=== PATIENT | male | born 1970 | race Caucasian/White ===

== ENCOUNTER 2017-12-08 10:54 | Emergency (ER) | payer MEDICAID, OTHER ==
[~2017-12-08] VITALS: Ht 177.8 cm; Wt 82.0 kg
[~2017-12-08 10:54] MED LIST: L10
[2017-12-08] MEDS ORDERED: FAMOTIDINE 20MG/2ML VIAL IV STA (11:03)
[2017-12-08] MEDS ORDERED: ONDANSETRON HCL 4MG/2ML VIAL IV STA (11:03)
[2017-12-08] MEDS ORDERED: SODIUM CHLORIDE 0.9% 1,000 ML IV ONE ×2 (11:03→13:18)
[2017-12-08] MEDS ORDERED: PANTOPRAZOLE SODIUM 40 MG/VIAL IV STA (11:03)
[2017-12-08] MEDS ORDERED: MIDAZOLAM HCL 2 MG/2 ML VIAL IV ONE (11:15)
[2017-12-08 12:55] LABS: CHLORIDE 106 mEq/L (98-107)
[2017-12-08 12:56] LABS: HEMATOCRIT. 39.3 % (42.0-52.0); HEMOGLOBIN. 13.5 g/dL (14.0-18.0); MEAN CORPUSCULAR HEMOGLOBIN 34.7 pg (28.0-32.0); MEAN CORPUSCULAR VOLUME 100.8 fL (80.0-94.0); RED CELL DISTRIBUTION WIDTH 15.7 % (11.6-14.6)
[2017-12-08 12:58] LABS: PARTIAL THROMBOPLASTIN TIME 24.9 sec (23.4-31.0); PROTHROMBIN TIME 10.5 sec (9.4-11.6)
[2017-12-08 12:59] LABS: AMMONIA 34 uMol/L (<32); ETHANOL BLOOD < 10 mg/dL
[2017-12-08] MEDS ORDERED: LORAZEPAM 1MG TABLET PO ONE (13:30)
[2017-12-08 13:39] LABS: PLATELET 36 x1000/uL (130-400)
[2017-12-08 13:44] LABS: PLATELET ESTIMATE MARKEDLY DECREASED
[2017-12-08] MEDS ORDERED: ONDANSETRON HCL 4MG/2ML VIAL IV ONE (14:30)
[2017-12-08 14:57] LABS: CLARITY URINE CLEAR (CLEAR); COLOR URINE DARK YELLOW (YELLOW); KETONES URINE 3+ (NEGATIVE); LEUKOCYTE ESTERASE URINE NEGATIVE (NEGATIVE); NITRITE URINE NEGATIVE (NEGATIVE); OCCULT BLOOD URINE TRACE (NEGATIVE); PH URINE 5.5 (4.5-8.0); PROTEIN URINE 2+ (NEGATIVE); SPECIFIC GRAVITY URINE 1.033 (1.005-1.030)
[2017-12-08 15:21] VITALS: BP 140/101
[2017-12-08 15:38] LABS: *AMPHETAMINES SCREEN URINE NEGATIVE (NEGATIVE); *BARBITURATES SCREEN URINE NEGATIVE (NEGATIVE); *BENZODIAZEPINES SCREEN URINE PRESUMTIVE POSITIVE (NEGATIVE); *COCAINE SCREEN URINE NEGATIVE (NEGATIVE)
[2017-12-08 15:39] LABS: CANNABINOID URINE SCREEN NEGATIVE (NEGATIVE); METHADONE URINE SCREEN NEGATIVE (NEGATIVE); OPIATES URINE SCREEN NEGATIVE (NEGATIVE); PHENCYCLIDINE URINE SCREEN NEGATIVE (NEGATIVE)
== END 2017-12-08 15:54 | disposition home or self-care (01) ==
LOC: ER 10:54 → CANBEDREQ 15:28 → ER 15:54
DX: F10.239 Alcohol dependence with withdrawal, unspecified (principal); E86.0 Dehydration; D69.6 Thrombocytopenia, unspecified; D64.9 Anemia, unspecified; R79.89 Other specified abnormal findings of blood chemistry; Y90.0 Blood alcohol level of less than 20 mg/100 ml
CPT/HCPCS: 36415; 71045; 80053; 80305; 81003; 82140; 83690; 83735; 85025; 85610; 85730; 93005; 96361; 96374; 96375; 96376; 99291; C9113; G0482; J2250; J2405; J3490; J7030; Z7610

== ENCOUNTER 2017-12-08 19:13 | Emergency (ER) | payer SELFPAY ==
[~2017-12-08] VITALS: Ht 162.6 cm; Wt 73.0 kg
[2017-12-08] MEDS ORDERED: CHLORDIAZEPOXIDE 25MG CAPSULE PO ONE (20:30)
[2017-12-08] MEDS ORDERED: IBUPROFEN 600MG TABLET PO ONE (20:30)
[2017-12-08 22:11] VITALS: BP 151/93
== END 2017-12-08 22:13 | disposition home or self-care (01) ==
LOC: ER 19:13
DX: F10.239 Alcohol dependence with withdrawal, unspecified (principal); Y90.9 Presence of alcohol in blood, level not specified
CPT/HCPCS: 99283

== ENCOUNTER 2018-01-18 08:44 | Emergency (ER) | payer SELFPAY ==
[~2018-01-18] VITALS: Ht 170.2 cm; Wt 80.0 kg
[2018-01-18 11:13] LABS: EOSINOPHILS % 1.1 % (0.0-5.0); HEMATOCRIT. 41.4 % (42.0-52.0); HEMOGLOBIN. 14.3 g/dL (14.0-18.0); LYMPHOCYTES % 31.4 % (20.0-50.0); MEAN CORPUSCULAR HEMOGLOBIN 35.7 pg (28.0-32.0); MEAN CORPUSCULAR VOLUME 103.3 fL (80.0-94.0); MEAN PLATELET VOLUME 7.2 fl (7.4-10.4); MONOCYTES % 11.9 % (2.0-8.0); NEUTROPHILS % 52.6 % (40.0-76.0); PLATELET 80 x1000/uL (130-400); RED BLOOD CELL COUNT 4.01 mill/uL (4.7-6.1); RED CELL DISTRIBUTION WIDTH 16.5 % (11.6-14.6)
[2018-01-18 11:19] LABS: CHLORIDE 103 mEq/L (98-107)
[2018-01-18 11:24] LABS: ETHANOL BLOOD 273 mg/dL
[2018-01-18 13:30] VITALS: BP 119/87
== END 2018-01-18 15:44 | disposition home or self-care (01) ==
LOC: ER 09:18
DX: T51.0X1A Toxic effect of ethanol, accidental (unintentional), initial encounter (principal); R20.2 Paresthesia of skin; D47.3 Essential (hemorrhagic) thrombocythemia; D72.819 Decreased white blood cell count, unspecified; R74.0 Nonspecific elevation of levels of transaminase and lactic acid dehydrogenase [LDH]; F17.200 Nicotine dependence, unspecified, uncomplicated; Y90.8 Blood alcohol level of 240 mg/100 ml or more; Y92.018 Other place in single-family (private) house as the place of occurrence of the external cause
CPT/HCPCS: 36415; 70551; 71045; 80053; 85025; 99285; G0482

== ENCOUNTER 2018-01-23 14:04 | Emergency (ER) | payer SELFPAY ==
[~2018-01-23] VITALS: Ht 177.8 cm; Wt 82.0 kg
[2018-01-23] MEDS ORDERED: LORAZEPAM 2MG/ML CPJ IV STA (16:38)
[2018-01-23] MEDS ORDERED: SODIUM CHLORIDE 0.9% 1,000 ML IV ONE (16:38)
[2018-01-23 17:29] LABS: CHLORIDE 103 mEq/L (98-107)
[2018-01-23 17:30] LABS: BASOPHILS % 1.3 % (0.0-2.0); EOSINOPHILS % 1.4 % (0.0-5.0); HEMATOCRIT. 38.6 % (42.0-52.0); HEMOGLOBIN. 13.1 g/dL (14.0-18.0); LYMPHOCYTES % 30.2 % (20.0-50.0); MEAN CORPUSCULAR HEMOGLOBIN 35.8 pg (28.0-32.0); MEAN CORPUSCULAR VOLUME 105.6 fL (80.0-94.0); MEAN PLATELET VOLUME 7.9 fl (7.4-10.4); MONOCYTES % 14.1 % (2.0-8.0); PLATELET 142 x1000/uL (130-400); RED BLOOD CELL COUNT 3.66 mill/uL (4.7-6.1); RED CELL DISTRIBUTION WIDTH 16.2 % (11.6-14.6)
[2018-01-23 17:36] LABS: ETHANOL BLOOD < 10 mg/dL
[2018-01-23 17:37] LABS: PHOSPHORUS 3.5 mg/dL (2.5-4.9)
[2018-01-23 17:40] LABS: CREATINE KINASE 157 IU/L (39-308)
[2018-01-23] MEDS ORDERED: GABAPENTIN 300MG CAPSULE PO ONE (19:00)
[2018-01-23 19:08] VITALS: BP 123/71
[2018-01-23 20:03] LABS: CLARITY URINE CLEAR (CLEAR); COLOR URINE YELLOW (YELLOW); KETONES URINE NEGATIVE (NEGATIVE); LEUKOCYTE ESTERASE URINE NEGATIVE (NEGATIVE); NITRITE URINE NEGATIVE (NEGATIVE); OCCULT BLOOD URINE NEGATIVE (NEGATIVE); PH URINE 5.5 (4.5-8.0); PROTEIN URINE NEGATIVE (NEGATIVE); SPECIFIC GRAVITY URINE 1.017 (1.005-1.030); UROBILINOGEN URINE 0.2 E.U./dL (0.2-1.0)
[2018-01-23 20:26] LABS: *AMPHETAMINES SCREEN URINE NEGATIVE (NEGATIVE); *BARBITURATES SCREEN URINE NEGATIVE (NEGATIVE); *BENZODIAZEPINES SCREEN URINE NEGATIVE (NEGATIVE); *COCAINE SCREEN URINE NEGATIVE (NEGATIVE); METHADONE URINE SCREEN NEGATIVE (NEGATIVE)
[2018-01-23 20:27] LABS: CANNABINOID URINE SCREEN NEGATIVE (NEGATIVE); OPIATES URINE SCREEN NEGATIVE (NEGATIVE); PHENCYCLIDINE URINE SCREEN NEGATIVE (NEGATIVE)
== END 2018-01-23 19:26 | disposition home or self-care (01) ==
LOC: ER 16:25
DX: R20.2 Paresthesia of skin (principal); G62.9 Polyneuropathy, unspecified; F10.20 Alcohol dependence, uncomplicated; Y90.0 Blood alcohol level of less than 20 mg/100 ml
CPT/HCPCS: 36415; 80053; 80305; 80307; 80329; 81003; 82550; 83735; 83880; 84100; 84443; 84484; 85025; 96361; 96374; 99284; G0482; J2060; J7030; Z7610

== ENCOUNTER 2018-01-25 08:37 | Emergency (ER) | payer SELFPAY ==
[~2018-01-25] VITALS: Ht 165.1 cm; Wt 83.2 kg
[2018-01-25 13:56] VITALS: BP 126/83
== END 2018-01-25 13:57 | disposition home or self-care (01) ==
LOC: ER 09:03
DX: G62.1 Alcoholic polyneuropathy (principal); F10.20 Alcohol dependence, uncomplicated
CPT/HCPCS: 93005; 99284

== ENCOUNTER 2018-11-29 09:47 | Emergency (ER) | payer MEDICAID ==
[~2018-11-29] VITALS: Ht 167.6 cm; Wt 89.0 kg
[2018-11-29] MEDS ORDERED: IBUPROFEN 800MG TABLET PO ONE (11:00)
[2018-11-29 12:34] VITALS: BP 123/72
== END 2018-11-29 12:39 | disposition home or self-care (01) ==
LOC: ER 09:47
DX: M79.18 Myalgia, other site (principal); M54.2 Cervicalgia; R20.0 Anesthesia of skin; F10.229 Alcohol dependence with intoxication, unspecified; F41.9 Anxiety disorder, unspecified; F17.200 Nicotine dependence, unspecified, uncomplicated; Y90.9 Presence of alcohol in blood, level not specified
CPT/HCPCS: 70450; 72125; 99284; Z7610

== ENCOUNTER 2018-12-08 09:44 | Emergency (ER) | payer MEDICAID | END 2018-12-08 11:26 | disposition left against medical advice (07) | LOC: ER 09:44 | DX: Z53.21 Procedure and treatment not carried out due to patient leaving prior to being seen by health care provider (principal) ==

== ENCOUNTER 2019-01-03 09:10 | Emergency (ER) | payer MEDICAID ==
[~2019-01-03] VITALS: Ht 177.8 cm; Wt 82.0 kg
[2019-01-03 09:45] VITALS: BP 128/89
[2019-01-03 10:50] LABS: CHLORIDE 105 mEq/L (98-107)
[2019-01-03 10:51] LABS: INR 0.9; PROTHROMBIN TIME 9.4 sec (9.6-11.0)
[2019-01-03 11:16] LABS: BASOPHILS % 1.9 % (0.0-2.0); HEMATOCRIT. 38.5 % (42.0-52.0); HEMOGLOBIN. 13.5 g/dL (14.0-18.0); LYMPHOCYTES % 29.9 % (20.0-50.0); MEAN CORPUSCULAR HEMOGLOBIN 37.5 pg (28.0-32.0); MEAN CORPUSCULAR VOLUME 106.9 fL (80.0-94.0); MEAN PLATELET VOLUME 7.7 fl (7.4-10.4); MONOCYTES % 10.3 % (2.0-8.0); NEUTROPHILS % 56.9 % (40.0-76.0); PLATELET 71 x1000/uL (130-400); RED BLOOD CELL COUNT 3.61 mill/uL (4.7-6.1); RED CELL DISTRIBUTION WIDTH 16.2 % (11.6-14.6)
[2019-01-03 11:31] LABS: ETHANOL BLOOD 431 mg/dL
== END 2019-01-03 12:16 | disposition left against medical advice (07) ==
LOC: ER 09:10
DX: F10.229 Alcohol dependence with intoxication, unspecified (principal); Y90.8 Blood alcohol level of 240 mg/100 ml or more; R94.8 Abnormal results of function studies of other organs and systems; F17.210 Nicotine dependence, cigarettes, uncomplicated
CPT/HCPCS: 36415; 80320; 99283; G0480

== ENCOUNTER 2019-02-09 08:18 | Emergency (ER) | payer MEDICAID ==
[~2019-02-09] VITALS: Ht 172.7 cm; Wt 82.0 kg
[2019-02-09 08:30] VITALS: BP 115/73
[2019-02-09] MEDS ORDERED: IBUPROFEN 600MG TABLET PO ONE (09:00)
== END 2019-02-09 09:29 | disposition home or self-care (01) ==
LOC: ER 08:18
DX: G89.29 Other chronic pain (principal); M54.2 Cervicalgia
CPT/HCPCS: 99282

== ENCOUNTER 2019-03-20 10:39 | Emergency (ER) | payer MEDICAID ==
[~2019-03-20] VITALS: Ht 172.7 cm; Wt 75.0 kg
[2019-03-20] MEDS ORDERED: SODIUM CHLORIDE 0.9% 1,000 ML IV ONE (10:59)
[2019-03-20 11:43] LABS: BASOPHILS % 2.3 % (0.0-2.0); HEMATOCRIT. 38.6 % (42.0-52.0); HEMOGLOBIN. 13.5 g/dL (14.0-18.0); LYMPHOCYTES % 19.8 % (20.0-50.0); MEAN CORPUSCULAR HEMOGLOBIN 38.5 pg (28.0-32.0); MEAN CORPUSCULAR VOLUME 109.9 fL (80.0-94.0); MEAN PLATELET VOLUME 7.5 fl (7.4-10.4); MONOCYTES % 6.5 % (2.0-8.0); NEUTROPHILS % 70.4 % (40.0-76.0); PLATELET 82 x1000/uL (130-400); RED BLOOD CELL COUNT 3.51 mill/uL (4.7-6.1); RED CELL DISTRIBUTION WIDTH 13.3 % (11.6-14.6)
[2019-03-20 11:56] LABS: CHLORIDE 106 mEq/L (98-107)
[2019-03-20 12:10] LABS: ETHANOL BLOOD 419 mg/dL
[2019-03-20 12:18] LABS: *AMPHETAMINES SCREEN URINE NEGATIVE (NEGATIVE); *BARBITURATES SCREEN URINE NEGATIVE (NEGATIVE); *BENZODIAZEPINES SCREEN URINE NEGATIVE (NEGATIVE); *COCAINE SCREEN URINE NEGATIVE (NEGATIVE); METHADONE URINE SCREEN NEGATIVE (NEGATIVE); OPIATES URINE SCREEN NEGATIVE (NEGATIVE)
[2019-03-20 12:19] LABS: CANNABINOID URINE SCREEN NEGATIVE (NEGATIVE); PHENCYCLIDINE URINE SCREEN NEGATIVE (NEGATIVE)
[2019-03-20 15:19] VITALS: BP 124/72
== END 2019-03-20 15:22 | disposition home or self-care (01) ==
LOC: ER 10:43
DX: R55 Syncope and collapse (principal); F10.129 Alcohol abuse with intoxication, unspecified; Y90.9 Presence of alcohol in blood, level not specified
CPT/HCPCS: 36415; 80053; 80305; 80320; 85025; 93005; 96360; 99284; J7030; G0480

== ENCOUNTER 2020-01-19 18:48 | Emergency (ER) | payer MEDICAID ==
[~2020-01-19] VITALS: Ht 167.6 cm; Wt 72.0 kg
[~2020-01-19 18:48] MED LIST changes: +CHLO10CA71; -L10
[2020-01-19 19:50] VITALS: BP 117/85
== END 2020-01-19 20:13 | disposition home or self-care (01) ==
LOC: ER 18:48
DX: F10.129 Alcohol abuse with intoxication, unspecified (principal); Y90.9 Presence of alcohol in blood, level not specified; I10 Essential (primary) hypertension
CPT/HCPCS: 93005; 99283

== ENCOUNTER 2020-01-22 15:12 | Emergency (ER) | payer MEDICAID ==
[~2020-01-22] VITALS: Ht 167.6 cm; Wt 73.0 kg
[2020-01-22] MEDS ORDERED: LORAZEPAM 2MG/ML CPJ IV ONE (16:00)
[2020-01-22] MEDS ORDERED: CYANOCOBALAMIN 1000MCG/ML VIAL IM ONE (16:00)
[2020-01-22] MEDS ORDERED: SODIUM CHLORIDE 0.9% 1,000 ML IV ONE (16:00)
[2020-01-22 17:24] LABS: BASOPHILS % 1.4 % (0.0-2.0); EOSINOPHILS % 0.1 % (0.0-5.0); HEMOGLOBIN. 12.9 g/dL (14.0-18.0); LYMPHOCYTES % 7.6 % (20.0-50.0); MEAN CORPUSCULAR HEMOGLOBIN 35.2 pg (28.0-32.0); MEAN CORPUSCULAR VOLUME 103.6 fL (80.0-94.0); MEAN PLATELET VOLUME 7.9 fl (7.4-10.4); MONOCYTES % 8.4 % (2.0-8.0); NEUTROPHILS % 82.5 % (40.0-76.0); PLATELET 59 x1000/uL (130-400); RED BLOOD CELL COUNT 3.67 mill/uL (4.7-6.1); RED CELL DISTRIBUTION WIDTH 18.3 % (11.6-14.6)
[2020-01-22 17:30] LABS: CHLORIDE 102 mEq/L (98-107)
[2020-01-22 17:33] LABS: ETHANOL BLOOD < 10 mg/dL
[2020-01-22 17:51] LABS: CLARITY URINE CLEAR (CLEAR); COLOR URINE YELLOW (YELLOW); KETONES URINE NEGATIVE (NEGATIVE); LEUKOCYTE ESTERASE URINE NEGATIVE (NEGATIVE); NITRITE URINE NEGATIVE (NEGATIVE); OCCULT BLOOD URINE NEGATIVE (NEGATIVE); PH URINE 8.5 (4.5-8.0); PROTEIN URINE 1+ (NEGATIVE); SPECIFIC GRAVITY URINE 1.007 (1.005-1.030); UROBILINOGEN URINE 0.2 E.U./dL (0.2-1.0)
[2020-01-22 18:03] LABS: CANNABINOID URINE SCREEN NEGATIVE (NEGATIVE)
[2020-01-22 18:05] LABS: *AMPHETAMINES SCREEN URINE NEGATIVE (NEGATIVE); *BARBITURATES SCREEN URINE NEGATIVE (NEGATIVE); *BENZODIAZEPINES SCREEN URINE NEGATIVE (NEGATIVE); *COCAINE SCREEN URINE NEGATIVE (NEGATIVE); METHADONE URINE SCREEN NEGATIVE (NEGATIVE); OPIATES URINE SCREEN NEGATIVE (NEGATIVE); PHENCYCLIDINE URINE SCREEN NEGATIVE (NEGATIVE)
[2020-01-22 22:45] VITALS: BP 116/68
== END 2020-01-22 22:49 | disposition home or self-care (01) ==
LOC: ER 15:12
DX: F10.239 Alcohol dependence with withdrawal, unspecified (principal); Y90.0 Blood alcohol level of less than 20 mg/100 ml; D72.819 Decreased white blood cell count, unspecified; D64.9 Anemia, unspecified; D69.6 Thrombocytopenia, unspecified; R74.0 Nonspecific elevation of levels of transaminase and lactic acid dehydrogenase [LDH]; E86.0 Dehydration; E53.8 Deficiency of other specified B group vitamins; I10 Essential (primary) hypertension; Z87.440 Personal history of urinary (tract) infections; Z87.09 Personal history of other diseases of the respiratory system; E16.2 Hypoglycemia, unspecified
CPT/HCPCS: 36415; 71045; 80053; 80305; 80320; 81003; 83880; 84484; 85025; 85651; 93005; 96361; 96372; 96374; 99285; J2060; J3420; J7030; G0480

== ENCOUNTER 2020-10-02 09:55 | Emergency (ER) | payer MEDICAID ==
[~2020-10-02] VITALS: Ht 177.8 cm; Wt 87.0 kg
[2020-10-02] MEDS ORDERED: ONDANSETRON HCL 4MG/2ML INJ IV ONE (10:30)
[2020-10-02] MEDS ORDERED: SODIUM CHLORIDE 0.9% 1,000 ML IV ONE (10:30)
[2020-10-02] MEDS ORDERED: LORAZEPAM 2MG/ML CPJ IV ONE (10:30)
[2020-10-02 10:58] LABS: BASOPHILS % 1.1 % (0.0-2.0); EOSINOPHILS % 0.7 % (0.0-5.0); HEMATOCRIT. 38.6 % (42.0-52.0); HEMOGLOBIN. 13.5 g/dL (14.0-18.0); LYMPHOCYTES % 23.5 % (20.0-50.0); MEAN CORPUSCULAR HEMOGLOBIN 36.1 pg (28.0-32.0); MEAN PLATELET VOLUME 7.6 fl (7.4-10.4); NEUTROPHILS % 65.7 % (40.0-76.0); RED BLOOD CELL COUNT 3.75 mill/uL (4.7-6.1); RED CELL DISTRIBUTION WIDTH 16.7 % (11.6-14.6)
[2020-10-02 10:59] LABS: CHLORIDE 102 mEq/L (98-107)
[2020-10-02 11:03] LABS: ETHANOL BLOOD 201 mg/dL; PROTHROMBIN TIME 10.5 sec (9.6-11.0)
[2020-10-02 11:47] LABS: PLATELET ESTIMATE MARKEDLY DECREASED
[2020-10-02 11:48] LABS: PLATELET 31 x1000/uL (130-400)
[2020-10-02 13:20] VITALS: BP 128/82
== END 2020-10-02 13:22 | disposition home or self-care (01) ==
LOC: ER 09:55
DX: F10.129 Alcohol abuse with intoxication, unspecified (principal); R51.9 Headache, unspecified; R94.5 Abnormal results of liver function studies; R11.2 Nausea with vomiting, unspecified; I49.9 Cardiac arrhythmia, unspecified; Y90.7 Blood alcohol level of 200-239 mg/100 ml
CPT/HCPCS: 36415; 70450; 71045; 80053; 80320; 83690; 83880; 84484; 85025; 85610; 93005; 96361; 96374; 96375; 99285; J2060; J2405; J7030; Z7610; G0480

== ENCOUNTER 2021-01-04 03:34 | Emergency (ER) | payer MEDICAID ==
[~2021-01-04] VITALS: Ht 167.6 cm; Wt 86.0 kg
[2021-01-04] MEDS ORDERED: ASPIRIN 81MG TABLET PO ONE (04:45)
[2021-01-04 05:14] LABS: BASOPHILS % 2.6 % (0.0-2.0); EOSINOPHILS % 1.3 % (0.0-5.0); HEMATOCRIT. 36.8 % (42.0-52.0); HEMOGLOBIN. 12.6 g/dL (14.0-18.0); LYMPHOCYTES % 32.2 % (20.0-50.0); MEAN CORPUSCULAR HEMOGLOBIN 35.8 pg (28.0-32.0); MEAN CORPUSCULAR VOLUME 104.8 fL (80.0-94.0); MEAN PLATELET VOLUME 7.9 fl (7.4-10.4); MONOCYTES % 12.2 % (2.0-8.0); NEUTROPHILS % 51.7 % (40.0-76.0); PLATELET 53 x1000/uL (130-400); RED BLOOD CELL COUNT 3.52 mill/uL (4.7-6.1); RED CELL DISTRIBUTION WIDTH 15.6 % (11.6-14.6)
[2021-01-04 05:24] LABS: CHLORIDE 106 mEq/L (98-107)
[2021-01-04] MEDS ORDERED: KETOROLAC 30MG/ML VIAL IV STA (05:58)
[2021-01-04] MEDS ORDERED: METOCLOPRAMIDE HCL 10MG/2ML VIAL IV ONE (06:00)
[2021-01-04] MEDS ORDERED: SODIUM CHLORIDE 0.9% 1,000 ML IV ONE (06:00)
[2021-01-04 09:27] VITALS: BP 122/70
== END 2021-01-04 08:30 | disposition left against medical advice (07) ==
LOC: ER 03:34
DX: R07.89 Other chest pain (principal); R51.9 Headache, unspecified
CPT/HCPCS: 36415; 71045; 80053; 84484; 85025; 93005; 96361; 96374; 96375; 99285; J1885; J2765; J7030; Z7610

== ENCOUNTER 2021-03-03 08:00 | Emergency (ER) | payer MEDICAID ==
[~2021-03-03] VITALS: Ht 177.8 cm; Wt 88.0 kg
[2021-03-03 09:00] VITALS: BP 130/77
[2021-03-03 09:04] LABS: EOSINOPHILS % 9.1 % (0.0-5.0); HEMATOCRIT. 41.9 % (42.0-52.0); HEMOGLOBIN. 14.8 g/dL (14.0-18.0); LYMPHOCYTES % 27.5 % (20.0-50.0); MEAN CORPUSCULAR HEMOGLOBIN 35.9 pg (28.0-32.0); MEAN CORPUSCULAR VOLUME 101.3 fL (80.0-94.0); MEAN PLATELET VOLUME 7.5 fl (7.4-10.4); MONOCYTES % 5.8 % (2.0-8.0); NEUTROPHILS % 56.6 % (40.0-76.0); PLATELET 81 x1000/uL (130-400); RED BLOOD CELL COUNT 4.13 mill/uL (4.7-6.1); RED CELL DISTRIBUTION WIDTH 14.7 % (11.6-14.6)
[2021-03-03 09:09] LABS: CHLORIDE 106 mEq/L (98-107)
[2021-03-03] MEDS ORDERED: ONDANSETRON HCL 4MG/2ML INJ IV STA (09:16)
[2021-03-03] MEDS ORDERED: MAGNESIUM/ALUMINUM HYDROXIDE/SIMETHICONE 30ML UDC PO STA (09:16)
[2021-03-03] MEDS ORDERED: CALCIUM 1250MG TABLET (500MG ELEMENTAL CALCIUM) PO NR (10:00)
== END 2021-03-03 12:34 | disposition left against medical advice (07) ==
LOC: ER 08:00
DX: R10.13 Epigastric pain (principal); R11.0 Nausea; F10.229 Alcohol dependence with intoxication, unspecified; Y90.0 Blood alcohol level of less than 20 mg/100 ml
CPT/HCPCS: 36415; 80053; 83690; 84484; 85025; 93005; 96374; 99284; J2405; Z7610

== ENCOUNTER 2021-07-22 18:33 | Emergency (ER) | payer MEDICAID ==
[~2021-07-22] VITALS: Ht 165.1 cm; Wt 82.0 kg
[2021-07-22] MEDS ORDERED: METOCLOPRAMIDE HCL 10MG/2ML VIAL IV ONE (18:45)
[2021-07-22] MEDS ORDERED: SODIUM CHLORIDE 0.9% 1,000 ML IV ONE (18:45)
[2021-07-22] MEDS ORDERED: FOLIC ACID 1 MG, THIAMINE HCL 100 MG, MVI, ADULT NO.1 10 ML in DEXTROSE 5% WATER 1,000 ML IV ONE ×4 (18:45)
[2021-07-22] MEDS ORDERED: DIPHENHYDRAMINE 50MG/ML VIAL IV ONE (18:45)
[2021-07-22 19:35] LABS: BASOPHILS % 1.7 % (0.0-2.0); EOSINOPHILS % 2.1 % (0.0-5.0); HEMATOCRIT. 39.2 % (42.0-52.0); HEMOGLOBIN. 13.3 g/dL (14.0-18.0); LYMPHOCYTES % 53.3 % (20.0-50.0); MEAN CORPUSCULAR HEMOGLOBIN 34.9 pg (28.0-32.0); MEAN CORPUSCULAR VOLUME 102.9 fL (80.0-94.0); MEAN PLATELET VOLUME 7.7 fl (7.4-10.4); MONOCYTES % 12.2 % (2.0-8.0); NEUTROPHILS % 30.7 % (40.0-76.0); PLATELET 66 x1000/uL (130-400); RED BLOOD CELL COUNT 3.81 mill/uL (4.7-6.1); RED CELL DISTRIBUTION WIDTH 16.2 % (11.6-14.6)
[2021-07-22 19:43] LABS: CHLORIDE 107 mEq/L (98-107)
[2021-07-22 20:13] LABS: ETHANOL BLOOD 410 mg/dL
[2021-07-22] MEDS ORDERED: TOPUD PO (22:45)
[2021-07-22] MEDS ORDERED: IBUP-2028 MT (22:46)
[2021-07-22 23:05] VITALS: BP 120/78
== END 2021-07-22 23:16 | disposition home or self-care (01) ==
LOC: ER 18:33
DX: F10.129 Alcohol abuse with intoxication, unspecified (principal); M19.90 Unspecified osteoarthritis, unspecified site; Y90.8 Blood alcohol level of 240 mg/100 ml or more
CPT/HCPCS: 36415; 70450; 70486; 72125; 80053; 80307; 80320; 80329; 85025; 99284; J7030; J3411; J3490; J7070; G0480

== ENCOUNTER 2021-07-29 13:30 | Emergency (ER) | payer MEDICAID ==
[~2021-07-29] VITALS: Ht 170.2 cm; Wt 82.0 kg
[~2021-07-29 13:30] MED LIST changes: +IBUP-2028 MT; +TOPUD PO
[2021-07-29] MEDS ORDERED: ACETAMINOPHEN 325MG TABLET PO ONE (14:45)
[2021-07-29] MEDS ORDERED: ACET-2708 MT (15:53)
[2021-07-29 15:55] VITALS: BP 151/73
== END 2021-07-29 16:15 | disposition home or self-care (01) ==
LOC: ER 13:30
DX: S50.11XA Contusion of right forearm, initial encounter (principal); M19.90 Unspecified osteoarthritis, unspecified site; F10.10 Alcohol abuse, uncomplicated; Y90.9 Presence of alcohol in blood, level not specified; X58.XXXA Exposure to other specified factors, initial encounter; Y93.89 Activity, other specified; Y92.018 Other place in single-family (private) house as the place of occurrence of the external cause
CPT/HCPCS: 73090; 73110; 73130; 99284

== ENCOUNTER 2021-08-05 18:26 | Emergency (ER) | payer MEDICAID ==
[~2021-08-05] VITALS: Ht 170.2 cm; Wt 86.0 kg
[~2021-08-05 18:26] MED LIST changes: +ACET-2708 MT
[2021-08-05 18:41] VITALS: BP 125/86
[2021-08-05] MEDS ORDERED: MAGNESIUM/ALUMINUM HYDROXIDE/SIMETHICONE 30ML UDC PO STA (19:29)
[2021-08-05] MEDS ORDERED: FAMOTIDINE 20MG TABLET PO ONE (19:30)
[2021-08-05] MEDS ORDERED: ASPIRIN 325MG EC TABLET PO ONE (19:30)
[2021-08-05] MEDS ORDERED: NITROGLYCERIN 0.4MG TABLET SL SL ONE (19:30)
[2021-08-05 19:53] LABS: BASOPHILS % 1.2 % (0.0-2.0); EOSINOPHILS % 3.5 % (0.0-5.0); HEMATOCRIT. 40.4 % (42.0-52.0); HEMOGLOBIN. 13.9 g/dL (14.0-18.0); LYMPHOCYTES % 31.1 % (20.0-50.0); MEAN CORPUSCULAR HEMOGLOBIN 35.6 pg (28.0-32.0); MEAN CORPUSCULAR VOLUME 103.9 fL (80.0-94.0); MEAN PLATELET VOLUME 8.1 fl (7.4-10.4); MONOCYTES % 10.2 % (2.0-8.0); PLATELET 64 x1000/uL (130-400); RED BLOOD CELL COUNT 3.89 mill/uL (4.7-6.1); RED CELL DISTRIBUTION WIDTH 16.8 % (11.6-14.6)
[2021-08-05 19:59] LABS: CHLORIDE 105 mEq/L (98-107)
[2021-08-05 20:03] LABS: ETHANOL BLOOD 270 mg/dL
== END 2021-08-05 22:48 | disposition home or self-care (01) ==
LOC: ER 18:26
DX: F10.229 Alcohol dependence with intoxication, unspecified (principal); R10.13 Epigastric pain; M19.90 Unspecified osteoarthritis, unspecified site; Y90.8 Blood alcohol level of 240 mg/100 ml or more
CPT/HCPCS: 36415; 71045; 80053; 80320; 83880; 84484; 85025; 93005; 99285; G0480

== ENCOUNTER 2022-03-29 12:55 | Inpatient (IN) | payer MEDICAID ==
[~2022-03-29] VITALS: Ht 170.2 cm; Wt 66.2 kg
[~2022-03-29 12:55] MED LIST changes: -CHLO10CA71; +L10
[2022-03-29] MEDS ORDERED: SODIUM CHLORIDE 0.9% 1,000 ML IV ONE (14:00)
[2022-03-29 14:33] LABS: BASOPHILS % 2.7 % (0.0-2.0); HEMOGLOBIN. 11.6 g/dL (14.0-18.0); LYMPHOCYTES % 29.8 % (20.0-50.0); MEAN CORPUSCULAR HEMOGLOBIN 38.5 pg (28.0-32.0); MEAN CORPUSCULAR VOLUME 112.7 fL (80.0-94.0); MEAN PLATELET VOLUME 8.8 fl (7.4-10.4); MONOCYTES % 9.1 % (2.0-8.0); NEUTROPHILS % 54.4 % (40.0-76.0); RED BLOOD CELL COUNT 3.02 mill/uL (4.7-6.1); RED CELL DISTRIBUTION WIDTH 14.7 % (11.6-14.6)
[2022-03-29 14:39] LABS: CHLORIDE 103 mEq/L (98-107)
[2022-03-29 14:41] LABS: PLATELET 37 x1000/uL (130-400)
[2022-03-29 14:55] LABS: PLATELET ESTIMATE MARKEDLY DECREASED
[2022-03-29 16:24] LABS: INR 0.9
[2022-03-30 02:52] VITALS: BP 129/89
[2022-03-30 04:00] VITALS: BP 137/90
[2022-03-30] MEDS ORDERED: CHLORDIAZEPOXIDE 25MG CAPSULE PO NR (04:00)
[2022-03-30 08:00] VITALS: BP 135/89
[2022-03-30] MEDS ORDERED: ACETAMINOPHEN 325MG TABLET PO PRN (09:45)
[2022-03-30] MEDS ORDERED: IPRATROPIUM/ALBUTEROL 0.5-3(2.5)MG/3ML NEB HHN PRN (09:45)
[2022-03-30] MEDS ORDERED: ONDANSETRON HCL 4MG/2ML INJ IV PRN (09:45)
[2022-03-30] MEDS ORDERED: DIPHENHYDRAMINE 50MG/ML VIAL IV PRN (09:45)
[2022-03-30] MEDS ORDERED: CLONIDINE 0.1MG TABLET PO PRN (09:45)
[2022-03-30] MEDS ORDERED: MORPHINE SULFATE 2 MG/ML CPJ (NOT FOR IM USE) IV PRN (11:00)
[2022-03-30] MEDS ORDERED: NALOXONE HCL 0.4MG/ML VIAL IV PRN (11:00)
[2022-03-30 11:49] LABS: EOSINOPHILS % 1.8 % (0.0-5.0); HEMOGLOBIN. 11.9 g/dL (14.0-18.0); LYMPHOCYTES % 12.9 % (20.0-50.0); MEAN CORPUSCULAR HEMOGLOBIN 38.5 pg (28.0-32.0); MEAN CORPUSCULAR VOLUME 113.3 fL (80.0-94.0); MEAN PLATELET VOLUME 8.8 fl (7.4-10.4); MONOCYTES % 11.5 % (2.0-8.0); NEUTROPHILS % 71.8 % (40.0-76.0); RED BLOOD CELL COUNT 3.09 mill/uL (4.7-6.1); RED CELL DISTRIBUTION WIDTH 14.6 % (11.6-14.6)
[2022-03-30 12:00] VITALS: BP 117/93
[2022-03-30 12:15] LABS: PLATELET 35 x1000/uL (130-400)
[2022-03-30] MEDS: CHLORDIAZEPOXIDE 25MG CAPSULE PO SCH ×3 (14:00→21:44)
[2022-03-30 16:00] VITALS: BP 129/87
[2022-03-30] MEDS ORDERED: HALOPERIDOL LACTATE 5MG/ML VIAL IM PRN (16:30)
[2022-03-30] MEDS: LORAZEPAM 2MG/ML CPJ IM PRN (16:48)
[2022-03-30 20:00] VITALS: BP 134/68
[2022-03-31] VITALS: BP 131/88
[2022-03-31 04:00] VITALS: BP 123/94
[2022-03-31] MEDS: CHLORDIAZEPOXIDE 25MG CAPSULE PO SCH ×3 (05:13→21:00)
[2022-03-31 07:25] LABS: CHLORIDE 99 mEq/L (98-107)
[2022-03-31 08:00] VITALS: BP 127/70
[2022-03-31] MEDS ORDERED: BENZONATATE 100MG CAPSULE PO PRN (09:15)
[2022-03-31 12:00] VITALS: BP 125/74
[2022-03-31] MEDS: LORAZEPAM 2MG/ML CPJ IM PRN (12:32)
[2022-03-31 16:04] VITALS: BP 118/74
[2022-03-31] MEDS: GUAIFENESIN 600MG ER TABLET PO SCH (20:57)
[2022-04-01] VITALS: BP 123/81
[2022-04-01] MEDS: CHLORDIAZEPOXIDE 25MG CAPSULE PO SCH ×3 (06:08→20:42)
[2022-04-01 08:00] VITALS: BP 126/81
[2022-04-01] MEDS: GUAIFENESIN 600MG ER TABLET PO SCH ×2 (08:28→20:42)
[2022-04-01 09:45] LABS: BASOPHILS % 1.3 % (0.0-2.0); EOSINOPHILS % 4.6 % (0.0-5.0); HEMATOCRIT. 38.9 % (42.0-52.0); HEMOGLOBIN. 13.3 g/dL (14.0-18.0); LYMPHOCYTES % 28.9 % (20.0-50.0); MEAN CORPUSCULAR HEMOGLOBIN 38.9 pg (28.0-32.0); MEAN CORPUSCULAR VOLUME 113.6 fL (80.0-94.0); MEAN PLATELET VOLUME 8.8 fl (7.4-10.4); MONOCYTES % 9.9 % (2.0-8.0); NEUTROPHILS % 55.3 % (40.0-76.0); PLATELET 69 x1000/uL (130-400); RED BLOOD CELL COUNT 3.42 mill/uL (4.7-6.1); RED CELL DISTRIBUTION WIDTH 14.1 % (11.6-14.6)
[2022-04-01 10:12] LABS: CHLORIDE 99 mEq/L (98-107)
[2022-04-01 10:26] LABS: PHOSPHORUS 3.1 mg/dL (2.5-4.9)
[2022-04-01 12:00] VITALS: BP 111/73
[2022-04-01] MEDS ORDERED: MULT-1116 MT (12:30)
[2022-04-01] MEDS ORDERED: GUAI200T5 MT (12:30)
[2022-04-01] MEDS ORDERED: CHLO25CA10 MT (12:30)
[2022-04-01] MEDS ORDERED: THIA100T72 MT (12:30)
[2022-04-01] MEDS ORDERED: FOLI-43 MT (12:30)
[2022-04-01 18:32] LABS: T4 FREE 1.02 ng/dL (0.76-1.46)
[2022-04-01 20:00] VITALS: BP 117/82
[2022-04-02] VITALS: BP 113/79
[2022-04-02 04:00] VITALS: BP 135/84
[2022-04-02] MEDS: CHLORDIAZEPOXIDE 25MG CAPSULE PO SCH ×2 (05:37→16:08)
[2022-04-02 08:00] VITALS: BP 108/68
[2022-04-02] MEDS: GUAIFENESIN 600MG ER TABLET PO SCH (08:58)
[2022-04-02 12:00] VITALS: BP 117/87
[2022-04-02 13:15] LABS: HEMATOCRIT. 35.8 % (42.0-52.0); HEMOGLOBIN. 12.2 g/dL (14.0-18.0); MEAN CORPUSCULAR HEMOGLOBIN 39.1 pg (28.0-32.0); MEAN CORPUSCULAR VOLUME 114.5 fL (80.0-94.0); MEAN PLATELET VOLUME 8.3 fl (7.4-10.4); PLATELET 95 x1000/uL (130-400); RED BLOOD CELL COUNT 3.13 mill/uL (4.7-6.1); RED CELL DISTRIBUTION WIDTH 14.2 % (11.6-14.6)
[2022-04-02 15:33] LABS: PROTHROMBIN TIME 10.4 sec (9.6-11.0)
[2022-04-02 16:00] VITALS: BP 103/66
[2022-04-02 16:02] VITALS: BP 117/87
[2022-04-02 20:40] LABS: PLATELET ESTIMATE DECREASED
[2022-04-03 08:08] LABS: HBSAG SCREEN Negative (Negative)
[2022-04-03 08:08] LABS: HIV SCREEN 4G Non Reactive (Non Reactive)
== END 2022-04-02 16:23 | disposition home or self-care (01) | DRG 280 ==
LOC: ER 13:11 → MICUSO 18:14 → EDBEDREQ 18:15 → ENRESERV 20:44 → 6EST 03-30 01:19
PROVIDERS: ADMIT Internal Medicine; ATTEND Internal Medicine
DX: K70.30 Alcoholic cirrhosis of liver without ascites (principal); D69.6 Thrombocytopenia, unspecified; F10.239 Alcohol dependence with withdrawal, unspecified; M19.90 Unspecified osteoarthritis, unspecified site; Z20.822 Contact with and (suspected) exposure to COVID-19
CPT/HCPCS: 36415; 71045; 76536; 76700; 80048; 80053; 80076; 82962; 83735; 84100; 84439; 84443; 84481; 84484; 85025; 86705; 86709; 86803; 86850; 86900; 87340; 87389; 87426; 93005; 93970; 99285; C9803; J1630; J2060; J2405; J7030

== ENCOUNTER 2023-04-22 14:20 | Emergency (ER) | payer BC, MEDICAID, OTHER ==
[~2023-04-22] VITALS: Ht 175.3 cm; Wt 71.0 kg
[~2023-04-22 14:20] MED LIST changes: -ACET-2708 MT; +CEPH500C2 MT; +FOLI-43 MT; -IBUP-2028 MT; -L10; +MULT-1116 MT; +THIA100T72 MT
[2023-04-22 14:27] VITALS: BP 111/72; PULSE 121; RESP 17; O2SAT 100
[2023-04-22 14:45] VITALS: TEMP 97.8
[2023-04-22] MEDS ORDERED: ACETAMINOPHEN 325MG TABLET PO NR (14:45)
[2023-04-22] MEDS ORDERED: LEVO-65 MT (17:45)
== END 2023-04-22 18:26 | disposition home or self-care (01) ==
LOC: ER 14:20
DX: N45.1 Epididymitis (principal); Z98.890 Other specified postprocedural states
CPT/HCPCS: 76870; 93976; 99284

== ENCOUNTER 2023-12-23 15:24 | Emergency (ER) | payer BC, MEDICAID ==
[~2023-12-23] VITALS: Ht 175.3 cm; Wt 75.0 kg
[~2023-12-23 15:24] MED LIST changes: +LEVO-65 MT
[2023-12-23 15:37] VITALS: O2SAT 97
[2023-12-23 16:25] LABS: CHLORIDE 101 mEq/L (98-107); SODIUM 139 mEq/L (136-145)
[2023-12-23 16:26] LABS: CALCIUM 9.5 mg/dL (8.7-10.4); CARBON DIOXIDE 27 mEq/L (21-32)
[2023-12-23] MEDS: SODIUM CHLORIDE 0.9% 1,000 ML IV ONE (16:30)
[2023-12-23 16:31] LABS: CREATININE 0.7 mg/dL (0.6-1.3); GLUCOSE 91 mg/dL (70-105); UREA NITROGEN BLOOD 5 mg/dL (9-23)
[2023-12-23 16:32] LABS: TROPONIN I HIGH SENSITIVITY 7 ng/L (3.0-53)
[2023-12-23 16:33] LABS: ALANINE AMINOTRANSFERASE 124 IU/L (10-49); ALBUMIN 4.9 g/dL (3.2-4.8); ASPARTATE AMINOTRANSFERASE 291 IU/L (<34); BILIRUBIN DIRECT 0.7 mg/dL (<=3.0)
[2023-12-23 16:34] LABS: BILIRUBIN TOTAL 1.7 mg/dL (0.1-1.0); PROTEIN TOTAL 8.1 g/dL (6.0-8.3)
[2023-12-23] MEDS: ONDANSETRON HCL 4MG/2ML INJ IV STA (16:36)
[2023-12-23] MEDS: METOCLOPRAMIDE HCL 10MG/2ML VIAL IV STA (16:36)
[2023-12-23] MEDS: PANTOPRAZOLE SODIUM 40 MG/VIAL IV STA (16:37)
[2023-12-23 17:31] LABS: PROTHROMBIN TIME 11.1 sec (9.6-11.0)
[2023-12-23 18:08] LABS: BASOPHILS % 2.9 % (0.0-2.0); EOSINOPHILS % 0.1 % (0.0-5.0); HEMATOCRIT. 36.9 % (42.0-52.0); HEMOGLOBIN. 12.4 g/dL (14.0-18.0); LYMPHOCYTES % 22.7 % (20.0-50.0); MEAN CORPUSCULAR HEMOGLOBIN 34.6 pg (28.0-32.0); MEAN CORPUSCULAR HGB CONC 33.7 g/dL (31.0-37.0); MEAN CORPUSCULAR VOLUME 102.5 fL (80.0-94.0); MEAN PLATELET VOLUME 7.6 fl (7.4-10.4); MONOCYTES % 9.5 % (2.0-8.0); NEUTROPHILS % 64.8 % (40.0-76.0); RED CELL DISTRIBUTION WIDTH 21.4 % (11.6-14.6); WHITE BLOOD COUNT 3.1 x1000/uL (4.5-11.0)
[2023-12-23 18:12] LABS: DIFFERENTIAL COMMENT 1
[2023-12-23] MEDS ORDERED: ONDA4TAB50 MT (18:41)
[2023-12-23 19:10] VITALS: BP 130/86; PULSE 87; RESP 12; TEMP 98.6
[2023-12-24 11:21] LABS: PLATELET 29 x1000/uL (130-400)
== END 2023-12-23 19:11 | disposition home or self-care (01) ==
LOC: ER 15:24
DX: F10.129 Alcohol abuse with intoxication, unspecified (principal); D69.6 Thrombocytopenia, unspecified; F41.9 Anxiety disorder, unspecified; K21.9 Gastro-esophageal reflux disease without esophagitis; Z98.890 Other specified postprocedural states; Y90.7 Blood alcohol level of 200-239 mg/100 ml
CPT/HCPCS: 80076; 80048; 80320; 83690; 85025; 85610; 84484; 36415; 93005; 96365; 96375; 99284; J2765; J2405; J2470; J7030; Z7610 ×4; C1893; G0480